=== PATIENT | male | born 1975 | race Caucasian/White ===

== ENCOUNTER 2018-03-19 19:13 | Observation (INO) ==
[2018-03-19 19:43] LABS: Basophils # 0.1 K/mcL (0.0-0.2); Basophils % 0.3 %; Eosinophils # 0.1 K/mcL (0.0-0.6); Eosinophils % 0.3 %; Hematocrit 44.3 % (37.5-50.1); Hemoglobin 15.8 g/dL (12.9-16.9); Immature Granulocytes % 0.4 % (0-4); Lymphocytes # 2.3 K/mcL (0.6-4.6); Lymphocytes % 10.4 %; Mean Corpuscular HGB Conc 35.7 g/dL (31.6-35.5); Mean Corpuscular Hemoglobin 32.8 pg (28.0-33.3); Mean Corpuscular Volume 92.1 fL (83.0-100.0); Mean Platelet Volume 10.1 fL (9.4-12.4); Neutrophils # 17.8 K/mcL (1.6-8.9); Platelet Count 309 K/mcL (140-400); Red Blood Count 4.81 M/mcL (4.19-5.50); Red Cell Distribution Width 12.6 % (11.5-14.5); Segmented Neutrophils % 79.6 %
[2018-03-19 19:52] LABS: Activated Partial Thrombo Time 32.6 Seconds (26.0-36.0)
[2018-03-19 19:54] LABS: INR 1.1; Prothrombin Time 11.3 Seconds (9.4-12.1)
[2018-03-19 20:04] LABS: BUN/Creatinine Ratio 18 (6-26); Blood Urea Nitrogen 13 mg/dL (6-20); Calcium 10.5 mg/dL (8.6-10.3); Carbon Dioxide 27 mEq/L (23-29); Chloride 101 mEq/L (98-107); Glucose 123 mg/dL (70-105); Osmolality,Calculated 283 (280-300); Sodium 136 mEq/L (136-145); Troponin I < 0.03 ng/mL (< 0.04); eGFR For African Americans > 60 (> 60); eGFR For Non-African Americans > 60 (> 60)
[2018-03-19] MEDS ORDERED: *HR* HYDROcodone/Acet 5/325 mg TABLET PO ONE (20:39)
--- NOTE | 2018-03-19 20:39 | Emergency Department Note ---
Disposition Clinical Impression: Chest pain, rule out acute myocardial infarction Disposition: Admitted As Inpatient Condition: Fair Chest Pain HPI - General Chief Complaint: ED Chest Pain Stated Complaint: chest pain Time Seen by Provider: 03/19/18 19:30 Source: patient Limitations: no limitations - History of Present Illness HPI Narrative: Mr. Barry is a 42 year-old male with hx significant for uncontrolled HTN and underwent surgery to repair broken nose 3 days ago. He presents today via EMS with c/o chest pain, tachycardia, and epistaxis that began this afternoon while sitting on the couch. He describes substernal chest pressure with radiation down the LUE. His chest pain lasted approximately 1 hour and went away on its own with no intervention. During that time he became nauseous and diaphoretic but experienced no difficulty breathing, vision changes, confusion and he didn t become presyncopal. He admits to similar episodes of chest pain in the past brought on by exertion, but states the pain lasted 5 to 10 minutes before going away on its own. Severity scale (1-10): 0 - Related Data Previous Rx's Medication Instructions Recorded HYDROcodone/Acet 5/325 mg [[place] 1 - 2 tab PO Q6H PRN 4 Days #20 tab 03/10/18 5-325 mg] Clindamycin [Cleocin] 150 mg PO TID 7 Days #21 capsule 03/17/18 Allergies Allergy/AdvReac Type Severity Reaction Status Date / Time Penicillins Allergy Nausea/DIZZ Verified 03/20/18 00:55 Y All systems ED: reviewed and negative except as stated. Review of Systems: As Per HPI Constitutional: Denies: fever, chills ENT ED: Reports: as per HPI Cardiovascular: Reports: as per HPI. Denies: edema Respiratory: Reports: as per HPI Gastrointestinal: Reports: as per HPI. Denies: abdominal pain, vomiting Neurological: Reports: as per HPI. Denies: headache, numbness, paresthesias Chest Pain PMH - Past Medical History Medical history: Reports: no medical history Surgical history: Reports: tonsilectomy Psychiatric history: Reports: anxiety, depression - Social History Smoking Status: Current every day smoker Alcohol use: Reports: none Drug use: Reports: none Physical Exam - General Limitations: no limitations General appearance: alert, in no apparent distress - Head Head exam: normocephalic, normal inspection - Eye Eye exam: Present: normal appearance, PERRL - ENT ENT exam: other (dried blood bilateral nares, dressing over nasal bridge) - Neck Neck exam: Present: normal inspection, full ROM - Chest Chest inspection: Present: normal inspection, symmetric chest wall rise. Absent : tenderness - Respiratory Respiratory exam: Present: normal lung sounds bilaterally. Absent: respiratory distress, wheezes, accessory muscle use - Cardiovascular Cardiovascular exam: Present: tachycardia (sinus), normal heart sounds. Absent : systolic murmur, diastolic murmur - Abdominal Exam Abdominal exam: Present: soft, Non-Tender. Absent: distention, guarding, rebound, rigidity - Extremities Exam Extremities exam: Present: normal inspection, full ROM. Absent: tenderness, pedal edema, calf tenderness - Back Exam Back exam: Present: normal inspection - Neurological Exam Neurological exam: Present: alert, oriented X3. Absent: motor sensory deficit - Psychiatric Psychiatric exam: Present: normal affect, normal mood - Skin Skin exam: Present: warm, dry, intact Course Vital Signs Temperature 98.4 F 03/19/18 19:18 Pulse Rate 116 03/19/18 19:18 Respiratory Rate 18 03/19/18 19:18 Blood Pressure 145/121 03/19/18 19:18 O2 Sat by Pulse Oximetry 96 03/19/18 19:18 Temperature 97.9 F 03/20/18 02:17 Pulse Rate 91 03/20/18 02:17 Respiratory Rate 14 03/20/18 02:17 Blood Pressure 165/103 03/20/18 02:17 O2 Sat by Pulse Oximetry 97 03/20/18 02:17 Oxygen Delivery Oxygen Delivery Room Air Chest Pain - [facility] Narrative Medical decision making narrative: Mr. Barry is a 42 year-old male with uncontrolled HTN who presented by EMS with c/o chest pain, tachycardia, and epistaxis today. Initial vital signs were noted and significant for tachycardia HR 116 and BP 145/121. Immediately on arrival EKG performed and showed sinus tachycardia. He denies h/o stress test or echocardiogram. Multiple cardiac risk factors are presenttobacco use, untreated HTN, and family h/o CAD. First troponin was negative. Pt was chest pain free in the ED, but continued to b tachycardic in the 110s; we successfully treated his post-op nose pain in an attempt to decrease heart rate , but tachycardia persisted. Due to h/o surgery 3 days ago and persistent tachycardia, a d-dimer was ordered. PE ruled out with negative d-dimer. Pt agrees with plan to be admitted for further evaluation and management. - Medical Records Medical records reviewed: Yes I reviewed the patient's medical records. - Lab Data Lab results reviewed: Yes I reviewed the patient's lab results. Result diagrams: 03/20/18 03:46 03/20/18 03:46 Lab Results 03/19/18 03/19/18 03/19/18 Range/Units 19:32 19:32 19:32 WBC 22.4 H (4.3-11.1) K/mcL RBC 4.81 (4.19-5.50) M/mcL Hgb 15.8 (12.9-16.9) g/dL Hct 44.3 (37.5-50.1) % MCV 92.1 (83.0-100.0) fL MCH 32.8 (28.0-33.3) pg MCHC 35.7 H (31.6-35.5) g/dL RDW 12.6 (11.5-14.5) % Plt Count 309 (140-400) K/mcL MPV 10.1 (9.4-12.4) fL Immature Gran % 0.4 (0-4) % Seg Neutrophils % 79.6 % Lymphocytes % 10.4 % Monocytes % 9.0 % Eosinophils % 0.3 % Basophils % 0.3 % Neutrophils # 17.8 H (1.6-8.9) K/mcL Lymphocytes # 2.3 (0.6-4.6) K/mcL Monocytes # 2.0 H (0.0-1.3) K/mcL Eosinophils # 0.1 (0.0-0.6) K/mcL Basophils # 0.1 (0.0-0.2) K/mcL PT 11.3 (9.4-12.1) Seconds INR 1.1 APTT 32.6 (26.0-36.0) Seconds D-Dimer 314 (0-500) ng/mLFEU Sodium 136 (136-145) mEq/L Potassium 4.0 (3.5-5.1) mEq/L Chloride 101 (98-107) mEq/L Carbon Dioxide 27 (23-29) mEq/L BUN 13 (6-20) mg/dL Creatinine 0.72 (0.70-1.30) mg/dL Est GFR ( Amer) > 60 (> 60) Est GFR (Non-Af Amer) > 60 (> 60) BUN/Creatinine Ratio 18 (6-26) Glucose 123 H (70-105) mg/dL Calculated Osmolality 283 (280-300) Calcium 10.5 H (8.6-10.3) mg/dL Troponin I < 0.03 (< 0.04) ng/mL 03/19/18 Range/Units 22:11 WBC (4.3-11.1) K/mcL RBC (4.19-5.50) M/mcL Hgb (12.9-16.9) g/dL Hct (37.5-50.1) % MCV (83.0-100.0) fL MCH (28.0-33.3) pg MCHC (31.6-35.5) g/dL RDW (11.5-14.5) % Plt Count (140-400) K/mcL MPV (9.4-12.4) fL Immature Gran % (0-4) % Seg Neutrophils % % Lymphocytes % % Monocytes % % Eosinophils % % Basophils % % Neutrophils # (1.6-8.9) K/mcL Lymphocytes # (0.6-4.6) K/mcL Monocytes # (0.0-1.3) K/mcL Eosinophils # (0.0-0.6) K/mcL Basophils # (0.0-0.2) K/mcL PT (9.4-12.1) Seconds INR APTT (26.0-36.0) Seconds D-Dimer (0-500) ng/mLFEU Sodium (136-145) mEq/L Potassium (3.5-5.1) mEq/L Chloride (98-107) mEq/L Carbon Dioxide (23-29) mEq/L BUN (6-20) mg/dL Creatinine (0.70-1.30) mg/dL Est GFR ( Amer) (> 60) Est GFR (Non-Af Amer) (> 60) BUN/Creatinine Ratio (6-26) Glucose (70-105) mg/dL Calculated Osmolality (280-300) Calcium (8.6-10.3) mg/dL Troponin I < 0.03 (< 0.04) ng/mL - Radiology Data Radiology results reviewed: Yes I reviewed the patient's radiology results. - EKG Data Rate: tachycardia (sinus)
--- NOTE | 2018-03-19 21:28 | Emergency Department Note ---
Disposition Clinical Impression: Chest pain, rule out acute myocardial infarction Disposition: Admitted As Inpatient Condition: Fair Referrals: NONE,PCP [Primary Care Provider] - Forms: ED Satisfaction Letter Time of Disposition: 21:45 Chest Pain HPI - General Chief Complaint: ED Chest Pain Stated Complaint: chest pain Time Seen by Provider: 03/19/18 19:30 Source: patient Mode of arrival: ambulatory Limitations: no limitations Vital Signs Reviewed: Yes Nursing Notes Reviewed: Yes - History of Present Illness Severity scale (1-10): 0 - Related Data Previous Rx's Medication Instructions Recorded HYDROcodone/Acet 5/325 mg [[place] 1 - 2 tab PO Q6H PRN 4 Days #20 tab 03/10/18 5-325 mg] Clindamycin [Cleocin] 150 mg PO TID 7 Days #21 capsule 03/17/18 Allergies Allergy/AdvReac Type Severity Reaction Status Date / Time Penicillins AdvReac Nausea/DIZZ Verified 03/17/18 19:45 Y Chest Pain PMH - Past Medical History Medical history: Reports: no medical history Surgical history: Reports: tonsilectomy Psychiatric history: Reports: anxiety, depression - Social History Smoking Status: Current every day smoker Alcohol use: Reports: none Drug use: Reports: none Physical Exam - General Limitations: no limitations General appearance: alert, in no apparent distress Course Vital Signs Temperature 98.4 F 03/19/18 19:18 Pulse Rate 116 03/19/18 19:18 Respiratory Rate 18 03/19/18 19:18 Blood Pressure 145/121 03/19/18 19:18 O2 Sat by Pulse Oximetry 96 03/19/18 19:18 Temperature 98.4 F 03/19/18 19:18 Pulse Rate 103 03/19/18 21:00 Respiratory Rate 18 03/19/18 21:00 Blood Pressure 146/102 03/19/18 21:00 O2 Sat by Pulse Oximetry 100 03/19/18 21:00 Oxygen Delivery Oxygen Delivery Room Air Chest Pain - Lab Data Result diagrams: 03/19/18 19:32 03/19/18 19:32 Lab Results 03/19/18 03/19/18 03/19/18 Range/Units 19:32 19:32 19:32 WBC 22.4 H (4.3-11.1) K/mcL RBC 4.81 (4.19-5.50) M/mcL Hgb 15.8 (12.9-16.9) g/dL Hct 44.3 (37.5-50.1) % MCV 92.1 (83.0-100.0) fL MCH 32.8 (28.0-33.3) pg MCHC 35.7 H (31.6-35.5) g/dL RDW 12.6 (11.5-14.5) % Plt Count 309 (140-400) K/mcL MPV 10.1 (9.4-12.4) fL Immature Gran % 0.4 (0-4) % Seg Neutrophils % 79.6 % Lymphocytes % 10.4 % Monocytes % 9.0 % Eosinophils % 0.3 % Basophils % 0.3 % Neutrophils # 17.8 H (1.6-8.9) K/mcL Lymphocytes # 2.3 (0.6-4.6) K/mcL Monocytes # 2.0 H (0.0-1.3) K/mcL Eosinophils # 0.1 (0.0-0.6) K/mcL Basophils # 0.1 (0.0-0.2) K/mcL PT 11.3 (9.4-12.1) Seconds INR 1.1 APTT 32.6 (26.0-36.0) Seconds D-Dimer 314 (0-500) ng/mLFEU Sodium 136 (136-145) mEq/L Potassium 4.0 (3.5-5.1) mEq/L Chloride 101 (98-107) mEq/L Carbon Dioxide 27 (23-29) mEq/L BUN 13 (6-20) mg/dL Creatinine 0.72 (0.70-1.30) mg/dL Est GFR ( Amer) > 60 (> 60) Est GFR (Non-Af Amer) > 60 (> 60) BUN/Creatinine Ratio 18 (6-26) Glucose 123 H (70-105) mg/dL Calculated Osmolality 283 (280-300) Calcium 10.5 H (8.6-10.3) mg/dL Troponin I < 0.03 (< 0.04) ng/mL Attestation Statement - Attestation Attestation: I, Clem Mcmanus, examined this patient and my medical decision-making was reviewed with the LOBSTERMAN/PA/Advanced Practice Nurse/Resident Physician. I agree with the documented findings, disposition and treatment plan as described except to the extent set forth below. 42-year-old male presents emergency Department with concerns of chest pain, tachycardia and epistaxis. Patient states he recently had a broken nose which required surgery 3 days ago. Patient states today he was sitting down watching TV when he had an acute episode of sternal pressure which radiated to his left upper extremity. Patient states this is never occurred to him in the past. He had associated nausea and diaphoresis but did not become short of breath or near syncopal. Patient states the pain lasted for about 30 minutes to an hour for resolving without intervention. Patient's pain is now gone in the emergency department. Never had a history of stress test. Patient has cardiac risk factors of tobacco abuse daily, family history of multiple coronary artery disease, and untreated hypertension. Patient had a negative initial troponin. EKG showed a sinus tachycardia. We attempted to treat the patient's pain to see if this would help with his tachycardia however it did not resolve. Patient had a negative d-dimer to rule out PE. Patient comfortable with the plan for admission to hospital for continuation of care.
[2018-03-19] MEDS ORDERED: *HR* FentaNYL (PF) 100 MCG/2 ML VIAL IVP ONE (22:20)
[2018-03-19] MEDS ORDERED: Clindamycin 600 MG/50 ML 600 MG/50 ML IV.SOLN IVPB ONE (22:20)
[2018-03-19] MEDS ORDERED: Naloxone 0.4 MG/ML INJ IVP PRN (23:42)
[2018-03-19] MEDS ORDERED: *HR* FentaNYL (PF) 100 MCG/2 ML VIAL IVP PRN (23:42)
[2018-03-19] MEDS ORDERED: Acetaminophen 325 MG TABLET PO PRN (23:42)
[2018-03-19] MEDS ORDERED: *HR* HYDROcodone/Acet 5/325 mg TABLET PO PRN (23:47)
--- NOTE | 2018-03-20 00:12 | Internal Med History&Physical ---
Date of Encounter: 03/19/18 Time of Encounter: 23:15 Internal Medicine - H&P: HPI Chief complaint: chest pain Admitted From: Emergency Dept Plans for Post Hospital Care: Home History of present illness: Mr. Barry is a 42 year old male who presents with a one day history of substernal chest pain and pressure radiating to his left arm and diaphoresis. Symptoms occurred today while resting and watching TV with his fiancee. He became quite diaphoretic and anxious when the symptoms started. Symptoms persisted and did not resolve. He therefore came to ER for evaluation. Workup was negative except for some tachycardia. He was given some fentanyl with some relief of pain. He was therefore admitted to hospitalist service. Of note, his d-dimer is negative. Upon my assessment of the patient, he states the pain was more of a pressure sensation in his left chest with radiation and heaviness in his left arm and shoulder. Additional symptoms he had include some diaphoresis and nausea but no shortness of breath. He denies any prior chest pain. He is an active individual. He does smoke and has a family history of heart disease. He also has a history of hypertension but has not been treated for quite some time. Therefore, he does have cardiac risk factors. He does have an elevated white blood cell, but he is on antibiotics and just finished a short course of steroids for recent nasal bone surgery 2 days ago. He sustained a nasal fracture requiring surgery. He denies any fevers, chills, or night sweats. Regarding his nasal fracture and surgery, I contacted his ENT and requested ENT consult in the morning to assess for postop issues. Other than the occasional nosebleed, patient states he's been doing well with his surgery. He still has some significant postoperative pain but it is slowly improving. I reviewed his EKG and note some RVH changes on today's EKG and subtle changes from an EKG 12 years ago. I discussed the possibility of sleep apnea with patient and his fiancee. Both of them confirm that he is a loud snorer and has had some significant issues at night waking up short of breath. I suspect he does have sleep apnea. Therefore, I recommend outpatient sleep study in the near future. EKG changes most likely related to undiagnosed sleep apnea. Past Med Surg Social Fam HX - Past Medical History Attestation: Yes The following information was validated with the patient. Source: patient, old records reviewed Medical history: hypertension Psychiatric history: anxiety, depression - Past Surgical History Surgical History: tonsilectomy, other (ENT surgery for nasal bone fracture 2 days ago) - Social History Smoking Status: Current every day smoker Smokeless Tobacco Status: No Alcohol use: none Drug use: none Occupational status: employed Current living situation: Home, With Family Activity Level: Independent ambulation Recent Out of Country Travel Within the Last 8 Weeks: No - Family History Mother Living Status: Still Living Hx Family Cardiac Disorders: Yes Internal Medicine - H&P: Meds HYDROcodone/Acet 5/325 mg [[place] 5-325 mg] 1 - 2 tab PO Q6H PRN 4 Days #20 tab 03/10/18 [Rx] Clindamycin [Cleocin] 150 mg PO TID 7 Days #21 capsule 03/17/18 [Rx] 3 Allergy/AdvReac Type Severity Reaction Status Date / Time Penicillins AdvReac Nausea/DIZZ Verified 03/17/18 19:45 Y - Constitutional Constitutional: no chills, no fever(s), no night sweats - EENT Eyes: no blurry vision, no change in vision Ears: no ear pain, no tinnitus Nose, mouth and throat: nasal discharge (post-op dried blood), no nasal congestion, no sinus pain, no sinus pressure, no sore throat - Cardiovascular Cardiovascular ROS IM: chest pain, diaphoresis, no dyspnea, no dyspnea on exertion, no lightheadedness, no orthopnea, no palpitations, no paroxysmal nocturnal dyspnea, no syncope - Respiratory Respiratory: no cough, no dyspnea, no hemoptysis, no chest congestion, no excessive phlegm production, no change in phlegm color - Gastrointestinal Gastrointestinal: no abdominal pain, no diarrhea, no hematemesis, no hematochezia, no melena, no nausea, no vomiting - Genitourinary Genitourinary ROS male: no dysuria, no flank pain, no hematuria - Musculoskeletal Musculoskeletal ROS IM: no atrophy, no back pain, no myalgias - Integumentary Integumentary IM: no rash, no jaundice - Neurological Neurological ROS: no dizziness, no focal weakness, no frequent falls, no headache(s), no weakness - Psychiatric Psychiatric: no anxiety, no depression - Endocrine Endocrine IM: no polydipsia, no polyuria - Allergic/Immunologic Allergic/Immunologic: no wheezing, no GI upset with certain foods - Constitutional Vitals: Temp Pulse Resp BP Pulse Ox 98.0 F 111 16 147/106 98 03/19/18 23:23 03/19/18 23:23 03/19/18 23:23 03/19/18 23:23 03/19/18 23:23 General appearance: Present: cooperative, A&O X 3, pleasant, no acute distress, answers questions appropriately - Head Head exam: Present: atraumatic, normal inspection - Eye Eye exam: Present: EOMI, normal appearance, PERRL. Absent: scleral icterus Pupils: Present: normal accommodation - ENT ENT exam: Present: mucous membranes dry, normal oropharynx Additional comments: Nasal dressing and dried blood from nares - Neck Neck exam general surgery: Present: full ROM, supple. Absent: lymphadenopathy, tenderness, nuchal rigidity, thyromegaly - Respiratory Respiratory exam: Present: CTAB. Absent: chest wall tenderness, rales, respiratory distress, rhonchi, wheezes - Cardiovascular Cardiovascular exam: Present: JVD, +S1, +S2. Absent: diastolic murmur, systolic murmur - GI/Abdominal GI/Abdominal exam: Present: normal bowel sounds, soft. Absent: hepatomegaly, mass, splenomegaly, tenderness - Extremities Exam Extremities exam: Present: full ROM, warm, radial pulses palpable and symmetrical. Absent: calf tenderness, joint swelling, pedal edema, tenderness - Back Exam Back exam: Absent: CVA tenderness (L), CVA tenderness (R) - Neurological Exam Neurological exam: Present: alert, CN II-XII intact, oriented X3, no focal deficits, strengths equal and symetr throughout - Psychiatric Psychiatric exam: Present: normal affect, normal mood - Skin Skin exam: Present: dry, warm. Absent: rash Internal Med - H&P Results - Labs CBC & Chem 7: 03/19/18 19:32 03/19/18 19:32 - EKG Data -: EKG Interpreted by Myself - EKG Data Prior EKG available for review: yes When compared to previous EKG: there is no significant change EKG comments: 03/20/18 00:37 Sinus rhythm; RVH findings - Diagnostic Studies Chest x-ray Status: image reviewed by me (negative) - Assessment and plan (1) Chest pain, rule out acute myocardial infarction Current Visit: Yes Status: Acute Assessment and plan: 1. Will proceed with serial troponins, EKG's, and then stress test in the morning. 2. Will order ECHO given RVH findings on EKG. 3. History suggestive of BONNY; recommend formal sleep study as outpatient in the near future. (2) S/P nasal surgery Current Visit: Yes Status: Acute Assessment and plan: 1. ENT consult for post-op wound check. 2. Leukocytosis likely due to steroids and recent surgery. 3. Continue Clindamycin and monitor clinically. (3) Hypertension Current Visit: Yes Status: Acute Assessment and plan: 1. Monitor BP and use PRN Hydralazine. 2. Patient will likely need to start daily regimen upon discharge. Qualifiers: Hypertension type: essential hypertension Qualified Code(s): I10 - Essential (primary) hypertension (4) DVT prophylaxis Current Visit: Yes Status: Acute Assessment and plan: 1. EPCD.
[2018-03-20] MEDS ORDERED: *HR* FentaNYL (PF) 100 MCG/2 ML VIAL ONE (00:36)
[2018-03-20] MEDS: *HR* OxyCODONE/APAP 5/325 TABLET PO PRN ×2 (02:05→09:01)
[2018-03-20] MEDS: 0.9 % Sodium Chloride 1,000 ML IVC SCH ×2 (02:05→13:43)
[2018-03-20 04:21] LABS: Basophils % 0.2 %; Eosinophils # 0.1 K/mcL (0.0-0.6); Eosinophils % 0.7 %; Hemoglobin 14.4 g/dL (12.9-16.9); Immature Granulocytes % 0.5 % (0-4); Lymphocytes # 3.3 K/mcL (0.6-4.6); Lymphocytes % 17.1 %; Mean Corpuscular Hemoglobin 32.8 pg (28.0-33.3); Mean Corpuscular Volume 91.1 fL (83.0-100.0); Mean Platelet Volume 10.5 fL (9.4-12.4); Monocytes # 2.3 K/mcL (0.0-1.3); Monocytes % 11.7 %; Neutrophils # 13.6 K/mcL (1.6-8.9); Platelet Count 265 K/mcL (140-400); Red Blood Count 4.39 M/mcL (4.19-5.50); Red Cell Distribution Width 12.6 % (11.5-14.5); Segmented Neutrophils % 69.8 %
[2018-03-20 04:40] LABS: Alanine Aminotransferase 21 Units/L (7-52); Albumin 4.3 g/dL (3.5-5.7); Albumin/Globulin Ratio 1.5 (1.1-2.2); Alkaline Phosphatase 63 Units/L (34-104); Aspartate Amino Transferase 16 Units/L (13-39); BUN/Creatinine Ratio 24 (6-26); Bilirubin,Total 1.1 mg/dL (0.3-1.0); Blood Urea Nitrogen 16 mg/dL (6-20); Calcium 9.7 mg/dL (8.6-10.3); Carbon Dioxide 23 mEq/L (23-29); Chloride 105 mEq/L (98-107); Chol/HDL Ratio 3.3 (0-4.9); Cholesterol 147 mg/dL (< 200); Globulin 2.8 g/dL (2.4-3.5); Glucose 123 mg/dL (70-105); HDL Cholesterol 44 mg/dL (40-59); LDL Cholesterol,Calculated 60 mg/dL (0-99); Magnesium 2.2 mg/dL (1.6-2.6); Osmolality,Calculated 287 (280-300); Potassium 3.9 mEq/L (3.5-5.1); Sodium 137 mEq/L (136-145); Total Protein 7.1 g/dL (6.4-8.9); Triglycerides 215 mg/dL (< 150); eGFR For African Americans > 60 (> 60); eGFR For Non-African Americans > 60 (> 60)
[2018-03-20 05:27] LABS: Troponin I < 0.03 ng/mL (< 0.04)
[2018-03-20] MEDS: Clindamycin 600 MG/50 ML 600 MG/50 ML IV.SOLN IVPB SCH ×2 (05:41→08:39)
[2018-03-20] MEDS: *HR* OxyCODONE Immed Rel 5 MG TABLET PO PRN ×3 (06:03→13:48)
[2018-03-20] MEDS ORDERED: Regadenoson 0.4 MG/5 ML SYRINGE IVP ONE (06:44)
--- NOTE | 2018-03-20 12:05 | ENT - Consult Note ---
Date of Encounter: 03/20/18 Time of Encounter: 11:59 Assessment and Plan (1) S/P nasal surgery Current Visit: Yes Status: Acute expected level of pain, no significant bleeding, external dorsal and internal sanchez splints are in place and are scheduled to be removed in the outpatient clinic later this week. continue antibiotic coverage while splints are in place. thank you for the consult. no additional recommendations from an ENT standpoint. History of Present Illness Consult date: 03/20/18 Reason for ENT Consult: other (eval s/p closed reduction of nasal fracture) History of present illness: This patient underwent a septoplasty and closed reduction of nasal fracture on 17 March. Admitted yesterday for chest pain. he reports nasal obstruction, appropriate facial/nasal pain and minimal bleeding since the procedure. consulted to evaluate the patient in the setting of admission for chest pain to ensure that his post surgical course is progressing as it should be. his WBC was elevated on admission, however this is likely due to the administration of jesus-operative steroid. Past Med Surg Social Fam HX - Past Medical History Medical history: no medical history Psychiatric history: anxiety, depression - Past Surgical History Surgical History: tonsilectomy - Social History Smoking Status: Current every day smoker Packs per day: 1 Smokeless Tobacco Status: No Alcohol use: none Drug use: none - Family History Mother Living Status: Still Living Hx Family Cardiac Disorders: Yes (HTN) Hx Family Endocrine Disorder: Yes (DM) Medications and Allergies HYDROcodone/Acet 5/325 mg [[place] 5-325 mg] 1 - 2 tab PO Q6H PRN 4 Days #20 tab 03/10/18 [Rx] Clindamycin [Cleocin] 150 mg PO TID 7 Days #21 capsule 03/17/18 [Rx] 3 Allergy/AdvReac Type Severity Reaction Status Date / Time Penicillins Allergy Nausea/DIZZ Verified 03/20/18 00:55 Y ENT - ROS - EENT Nose, mouth and throat: as per HPI ENT Exam Initial Vital Signs Temp Pulse Resp BP Pulse Ox 98.4 F 116 18 145/121 96 03/19/18 19:18 03/19/18 19:18 03/19/18 19:18 03/19/18 19:18 03/19/18 19:18 - General physical appearance well developed, well nourished, no distress - Eyes PERRL, normal ocular movement - ENT Other (external nasal dorsal splint with intranasal sanchez splints. crusted blood at nares but no evidence of active bleeding. no evidence of posterior nasal bleeding.) - Neck no masses, trachea midline, no lymphadectomy - Respiratory normal respiratory effort Exam Initial Vital Signs Temp Pulse Resp BP Pulse Ox 98.4 F 116 18 145/121 96 03/19/18 19:18 03/19/18 19:18 03/19/18 19:18 03/19/18 19:18 03/19/18 19:18 Results - Labs 03/20/18 03:46 03/20/18 03:46 Abnormal lab results WBC 19.4 K/mcL (4.3-11.1) H 03/20/18 03:46 MCHC 36.0 g/dL (31.6-35.5) H 03/20/18 03:46 Neutrophils # 13.6 K/mcL (1.6-8.9) H 03/20/18 03:46 Monocytes # 2.3 K/mcL (0.0-1.3) H 03/20/18 03:46 Creatinine 0.67 mg/dL (0.70-1.30) L 03/20/18 03:46 Glucose 123 mg/dL (70-105) H 03/20/18 03:46 Total Bilirubin 1.1 mg/dL (0.3-1.0) H 03/20/18 03:46 Triglycerides 215 mg/dL (< 150) H 03/20/18 03:46 VLDL Cholesterol, Calc 43 mg/dL (< 31) H 03/20/18 03:46 Diabetes panel 03/20/18 Range/Units 03:46 Sodium 137 (136-145) mEq/L Potassium 3.9 (3.5-5.1) mEq/L Chloride 105 (98-107) mEq/L Carbon Dioxide 23 (23-29) mEq/L BUN 16 (6-20) mg/dL Creatinine 0.67 L (0.70-1.30) mg/dL Glucose 123 H (70-105) mg/dL Calcium 9.7 (8.6-10.3) mg/dL AST 16 (13-39) Units/L ALT 21 (7-52) Units/L Alkaline Phosphatase 63 (34-104) Units/L Albumin 4.3 (3.5-5.7) g/dL Triglycerides 215 H (< 150) mg/dL HDL Cholesterol 44 (40-59) mg/dL Calcium panel 03/20/18 Range/Units 03:46 Calcium 9.7 (8.6-10.3) mg/dL Albumin 4.3 (3.5-5.7) g/dL Pituitary panel 03/20/18 Range/Units 03:46 Sodium 137 (136-145) mEq/L Potassium 3.9 (3.5-5.1) mEq/L Chloride 105 (98-107) mEq/L Carbon Dioxide 23 (23-29) mEq/L BUN 16 (6-20) mg/dL Creatinine 0.67 L (0.70-1.30) mg/dL Glucose 123 H (70-105) mg/dL Calcium 9.7 (8.6-10.3) mg/dL Adrenal panel 03/20/18 Range/Units 03:46 Sodium 137 (136-145) mEq/L Potassium 3.9 (3.5-5.1) mEq/L Chloride 105 (98-107) mEq/L Carbon Dioxide 23 (23-29) mEq/L BUN 16 (6-20) mg/dL Creatinine 0.67 L (0.70-1.30) mg/dL Glucose 123 H (70-105) mg/dL Calcium 9.7 (8.6-10.3) mg/dL Total Bilirubin 1.1 H (0.3-1.0) mg/dL AST 16 (13-39) Units/L ALT 21 (7-52) Units/L Alkaline Phosphatase 63 (34-104) Units/L Albumin 4.3 (3.5-5.7) g/dL All other labs normal. Consult Discharge Plan - Plan Referrals: NONE,PCP [Primary Care Provider] -
--- NOTE | 2018-03-20 13:35 | Discharge Summary ---
- NOTES TO OUTPATIENT PROVIDER Notes to Outpatient Provider: follow up with ENT Orders not resulted at time of discharge: Pending orders 03/19/18 23:46 NM caleb perf SPECT multi [NM] Routine 03/20/18 06:00 ECG 12 lead ECG [ECG] AM 0600 Date of Encounter: 03/20/18 Time of Encounter: 13:27 - Discharge Diagnosis (1) Hypertension Priority: Secondary Status: Acute Qualifiers: Hypertension type: essential hypertension Qualified Code(s): I10 - Essential (primary) hypertension (2) Chest pain, rule out acute myocardial infarction Priority: Primary Status: Acute (3) S/P nasal surgery Priority: Secondary Status: Acute Hospital course: Mr. Barry is a 42 year old male past medical history of hypertension as well as current smoker. Patient presented to the emergency department after experience one day history of substernal chest pain and pressure which radiated to his left arm he has associated symptoms of diaphoresis. Symptoms occurred while at rest there were no aggravating or relieving factors. Patient did have tachycardia on presentation to the ER d-dimer was obtained which was negative troponins were negative 3 EKG with some RVH changes subtle from EKG 12 years ago. He does have history of hypertension but is not on any medications. He underwent a nuclear cardiac stress test which was negative for any ischemia or infarct During admission noted patient continued to have tachycardia heart rate 116 -90s- and systolic 160s to 140s diastolic 90s to 100s. Patient started on low-dose beta wang-which did improve heart rate and blood pressure -advised patient to stop smoking-patient requesting nicotine patch-did write prescription- we did make an appointment with her primary care provider later on this week. Advised patient to monitor blood pressure daily and to keep a log to present to PCP. Also advised patient to follow-up for possible outpatient sleep study. Patient verbalized understanding. Patient requesting pain medication. Advised patient he does have pain medication a has been written by his ENT and to continue prescribed medications. Patient verbalizes is not helping. Advised the patient was seen by ENT who felt that he was adequately controlled again advised to contact ENT. Patient verbalized understanding patient is hemodynamic be stable at this time and ready for discharge. Discharge discussed with: patient - Time Spent with Patient Total time spent providing and/or coordinating discharge services: - Discharge Medications Prescriptions: Metoprolol [Lopressor] 12.5 mg PO BID #30 tablet Nicotine Patch [Nicoderm] 14 mg TD DAILY #14 patch.td24 Home Medications: HYDROcodone/Acet 5/325 mg [[place] 5-325 mg] 1 - 2 tab PO Q6H PRN 4 Days #20 tab 03/10/18 [Rx] Clindamycin [Cleocin] 150 mg PO TID 7 Days #21 capsule 03/17/18 [Rx] Metoprolol [Lopressor] 12.5 mg PO BID #30 tablet 03/20/18 [Rx] Nicotine Patch [Nicoderm] 14 mg TD DAILY #14 patch.td24 03/20/18 [Rx] Allergies/Adverse Reactions: 3 Allergy/AdvReac Type Severity Reaction Status Date / Time Penicillins Allergy Nausea/DIZZ Verified 03/20/18 00:55 Y Date of admission: 03/19/18 22:27 Primary care physician: PCP NONE Consults: 03/19/18 23:44 Consult to Physician [CONS] Routine Consulting Provider: César Fox Reason for Consult: post-op check nasal surgery Time Notified: 23:45 Call Completed: Yes Discharging clinician: Renetta Fernandez Anticipated date of discharge: 03/20/18 - Constitutional Vitals: Temp Pulse Resp BP Pulse Ox 97.4 F L 108 18 133/97 97 03/20/18 11:43 03/20/18 11:43 03/20/18 11:43 03/20/18 11:43 03/20/18 11:43 General appearance: Present: cooperative, A&O X 3, pleasant, no acute distress, answers questions appropriately - Patient Status Disposition: Home, Self-Care Condition: Fair Functional capacity at discharge: independent ambulation Overall status at discharge: patient is back to baseline - Discharge Instructions Instructions: Chest Pain (DC), Chronic Hypertension (DC) Follow Up With: Maco Carpio SONOSCOPE OPERATOR [Non-Partnered Physician] - 03/27/18 2:30 pm (Please cancel this appointment if you are unable to make it within 24 hours. Please bring medication list and photo ID. Thank you!! ) - Diet and Activity Activity: increase activity as tolerated Diet: low fat, low cholesterol, low salt diet
[2018-03-20 15:53] VITALS: BP 128/87
--- NOTE | 2018-03-21 06:51 | Electrocardiograph Report ---
[place] [id number] Test Date: 2018-03-19 Pat Name: Sea Barry Department: 102 Room: 3B Gender: M Physician Pediatrician: Monica : 1975 Requested By: Clem Mcmanus Order Number: [id number] Reading MD: Lewis Baron Measurements Intervals [place] Rate: 116 P: 32 SD: 132 QRS: 246 QRSD: 90 T: 42 QT: 298 QTc: 367 Interpretive Statements SINUS TACHYCARDIA POOR R WAVE PROGRESSION POSSIBLE INFERIOR MYOCARDIAL INFARCTION, PROBABLY OLD Electronically Signed On 03-21-2018 6:49:28 EDT by Lewis Baron
== END 2018-03-20 16:40 | disposition home or self-care (01) ==
LOC: 3BNU 19:13 → EMEROO 19:13 → 3BNU 23:18
PROVIDERS: ADMIT Pediatrics; ATTEND Pediatrics

== ENCOUNTER 2020-11-11 16:04 | Observation (INO) ==
[2020-11-11] MEDS ORDERED: Aspirin 81 MG TAB.CHEW PO ONE (16:14)
[2020-11-11 16:44] LABS: Basophils % 0.4 %; Eosinophils % 2.5 %; Hemoglobin 16.2 g/dL (12.9-16.9); Immature Granulocytes % 0.4 % (0-4); Lymphocytes # 2.5 K/mcL (0.6-4.6); Lymphocytes % 25.1 %; Mean Corpuscular HGB Conc 34.5 g/dL (31.6-35.5); Mean Corpuscular Volume 92.7 fL (83.0-100.0); Mean Platelet Volume 10.5 fL (9.4-12.4); Monocytes # 0.9 K/mcL (0.0-1.3); Monocytes % 9.2 %; Neutrophils # 6.2 K/mcL (1.6-8.9); Platelet Count 208 K/mcL (140-400); Red Blood Count 5.07 M/mcL (4.19-5.50); Red Cell Distribution Width 11.9 % (11.5-14.5); Segmented Neutrophils % 62.4 %
[2020-11-11 16:45] LABS: Eosinophils # 0.3 K/mcL (0.0-0.6)
[2020-11-11 16:49] LABS: Prothrombin Time 11.6 Seconds (9.4-12.1)
[2020-11-11 16:51] LABS: Activated Partial Thrombo Time 33.4 Seconds (26.0-36.0)
[2020-11-11 17:01] LABS: BUN/Creatinine Ratio 19 (6-26); Blood Urea Nitrogen 15 mg/dL (6-20); Calcium 9.6 mg/dL (8.6-10.3); Carbon Dioxide 23 mEq/L (23-29); Chloride 104 mEq/L (98-107); Glucose 115 mg/dL (70-105); Osmolality,Calculated 288 (280-300); Potassium 3.9 mEq/L (3.5-5.1); Sodium 138 mEq/L (136-145); Troponin I < 0.03 ng/mL (< 0.04); eGFR For African Americans > 60 (> 60); eGFR For Non-African Americans > 60 (> 60)
[2020-11-11] MEDS ORDERED: Gadolinium Contrast Agent (WT Based) IV PRN (17:42)
[2020-11-11 19:05] LABS: Influenza A PCR Negative (Negative); Influenza B PCR Negative (Negative); Resp. Syncytial Virus PCR Negative (Negative)
[2020-11-11 19:06] LABS: SARS-CoV-2 by PCR (In House) Negative (Negative)
[2020-11-11] MEDS ORDERED: Albuterol 2.5 MG/3 ML NEBULIZER IH PRN (22:37)
[2020-11-11] MEDS ORDERED: Naloxone 0.4 MG/ML INJ IVP PRN (22:40)
[2020-11-11] MEDS ORDERED: Acetaminophen 325 MG TABLET PO PRN (22:40)
[2020-11-11] MEDS ORDERED: *HR* LORazepam 2 MG/ML VIAL IVP PRN ×3 (22:42)
[2020-11-11] MEDS ORDERED: Nicotine 14 MG PATCH.TD24 TD SCH (23:30)
[2020-11-12 01:57] LABS: Phosphorous 3.3 mg/dL (2.7-4.5)
[2020-11-12 02:03] LABS: Chol/HDL Ratio 6.8 (0-4.9); Cholesterol 258 mg/dL (< 200); HDL Cholesterol 38 mg/dL (40-59); Triglycerides 637 mg/dL (< 150); Troponin I < 0.03 ng/mL (< 0.04)
[2020-11-12 02:17] LABS: Folate 21.3 ng/mL (3.0-16.0)
[2020-11-12] MEDS: Folic Acid 1 MG TABLET PO SCH ×2 (04:32→07:36)
[2020-11-12] MEDS: Thiamine (B-1) 100 MG TABLET PO SCH ×2 (04:32→07:36)
[2020-11-12] MEDS ORDERED: hydroCHLOROthiazide 25 MG TABLET PO SCH (09:00)
[2020-11-12 10:03] VITALS: BP 156/75
[2020-11-12] MEDS ORDERED: amLODIPine 5 MG TABLET PO SCH (11:00)
== END 2020-11-12 11:58 | disposition home or self-care (01) ==
LOC: 3ANU 16:04 → EMEROOARM 16:04 → SUATTDRO 22:23 → 3ANU 22:26
PROVIDERS: ADMIT Family Medicine; ATTEND Internal Medicine